=== PATIENT | female | born 1985 | race Caucasian/White ===

== ENCOUNTER 2020-12-18 09:08 | Outpatient (REF) | payer OTHER, SELFPAY ==
[2020-12-18 15:25] LABS: HCT 35.6 % (36.0-46.0); HGB 11.9 g/dL (11.2-15.7); MCH 31.3 pg (27.0-33.0); MCHC 33.4 % (32.0-36.0); MCV 93.7 fL (80-95); MPV 11.1 fL (8.0-11.0); Platelet Count 321 10^3/uL (130-400); RDW 12.1 % (11.7-14.6); RDW-SD 42.1 fL; WBC 5.92 10^3/uL (4.4-10.8)
[2020-12-18 15:44] LABS: Anion Gap 9.3 mmol/L (3-11); BUN 17 mg/dL (7-18); CO2 27.7 mmol/L (21.0-32.0); CREATININE 0.7 mg/dL (0.55-1.02); Calcium 9.5 mg/dL (8.5-10.1); Calculated LDL 63 mg/dL (<100); Chloride 104 mmol/L (98-107); Cholesterol 145 mg/dL (<200); Glucose 105 mg/dL (74-106); HDL Cholesterol 76 mg/dL (40-60); Potassium 5.2 mmol/L (3.5-5.1); Sodium 141 mmol/L (136-145); Triglyceride 34 mg/dL (<150)
== END 2020-12-18 09:09 | disposition home or self-care (01) ==
LOC: NCHCN 09:08
PROVIDERS: PCP Nurse Practitioner Family; Visit Provider Nurse Practitioner Family
DX: Z00.00 Encounter for general adult medical examination without abnormal findings (principal); Z13.220 Encounter for screening for lipoid disorders; Z13.228 Encounter for screening for other metabolic disorders
CPT/HCPCS: 80048; 80061; 85027

== ENCOUNTER 2020-12-25 08:49 | Outpatient (CLI) | payer OTHER, SELFPAY ==
--- NOTE | 2020-12-25 08:43 | DI.RAD_ITS ---
EXAM: XR KNEE LT 4V AP,LAT,CHELSEY,PAT CLINICAL HISTORY: left knee pain. TECHNIQUE: 2D digital imaging was performed. COMPARISON: No exams were available for comparison FINDINGS: There is no evidence of fracture nor obvious joint effusion. Bone density is normal. No degenerativ e changes. No significant osseous lesions. Benign bone island in the lateral femoral condyle is not ed. There is no obvious patellar displacement in this female patient. IMPRESSION: No significant radiographic findings in the left knee. DATA REPOSITORY: RADIATION DOSE DELIVERED:
== END 2020-12-25 08:50 | disposition home or self-care (01) ==
LOC: DIORS 08:50
PROVIDERS: PCP Nurse Practitioner Family; Referring Provider Nurse Practitioner Family; Visit Provider Physician Assistant
DX: M25.562 Pain in left knee (principal)
CPT/HCPCS: 73564

== ENCOUNTER 2021-01-28 15:58 | Outpatient (REF) | payer OTHER, SELFPAY ==
--- NOTE | 2021-01-28 15:00 | PAPFT_PTH ---
PATIENT: Eugenia Patricia LOC: NCN #:[id number] AGE/SX: 35/F ROOM: RE01/28/[address]: Daniela Prado : 1985 BED: DIS: 01/28/2021 SPEC #: [id number] RECD: 01/28/21 18:19 STATUS: NELSON REQ #: [id number] MANUEL: 01/28/21 15:[address]: Daniela Prado DEPT: [facility] Cytology RECD BY: Minna March Tissues: 1 - CX/ENDOCX FOR PAP SMEARS Procedures: PAP THIN PREP/[facility] Screening HPV DNA PROBE Comments: [id number]
== END 2021-01-28 15:59 | disposition home or self-care (01) ==
LOC: NCHCN 15:58
PROVIDERS: PCP Nurse Practitioner Family; Visit Provider Nurse Practitioner Family
DX: Z00.00 Encounter for general adult medical examination without abnormal findings (principal); Z12.4 Encounter for screening for malignant neoplasm of cervix; Z11.51 Encounter for screening for human papillomavirus (HPV)
CPT/HCPCS: 88142; 87624

== ENCOUNTER 2022-06-30 02:47 | Outpatient (CLI) | payer OTHER, SELFPAY ==
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
== END 2022-06-30 03:07 ==
LOC: DI 02:47
PROVIDERS: PCP Nurse Practitioner Family; Visit Provider Student in an Organized Health Care Education/Training Program
DX: M71.22 Synovial cyst of popliteal space [Baker], left knee (principal)
CPT/HCPCS: 73721

== ENCOUNTER 2023-10-20 18:10 | Outpatient (REF) | payer OTHER, SELFPAY ==
[2023-10-20 19:35] LABS: Abs Immature Grans 0.02 10^3/uL (0.0-0.06); Absolute Basophil Count 0.04 10^3/uL (0.0-0.2); Absolute Eosinophil Count 0.03 10^3/uL (0.0-0.7); Absolute Lymphocyte Count 2.54 10^3/uL (1.2-3.4); Absolute Monocyte Count 0.57 10^3/uL (0.1-0.8); Absolute Neutrophil Count 4.97 10^3/uL (1.2-6.7); Basophils % 0.5; Eosinophils % 0.4; HGB 12.5 g/dL (11.2-15.7); Immature Grans % 0.2; Lymphocytes % 31.1; MCH 31.3 pg (27.0-33.0); MCHC 33.8 % (32.0-36.0); MCV 93 fL (80-95); MPV 10.9 fL (8.0-11.0); Neutrophils % 60.8; Platelet Count 342 10^3/uL (130-400); RBC 3.99 10^6/uL (3.93-5.22); RDW-SD 41.2 fL; WBC 8.17 10^3/uL (4.4-10.8)
[2023-10-20 20:13] LABS: ALT 24 U/L (14-59); AST 18 U/L (15-37); Albumin 4.2 g/dL (3.4-5.0); Alkaline Phosphatase 58 U/L (46-116); Anion Gap 7.9 mmol/L (3-11); BUN 12 mg/dL (7-18); Bilirubin, Total 0.9 mg/dL (0.2-1.0); CO2 30.1 mmol/L (21.0-32.0); CREATININE 0.8 mg/dL (0.55-1.02); Calcium 10.1 mg/dL (8.5-10.1); Chloride 103 mmol/L (98-107); Estimated GFR 97.26 (mL/min/1.73m2); Ferritin 66 ng/mL (8-252); Glucose 100 mg/dL (74-106); Magnesium 1.8 mg/dL (1.8-2.4); Potassium 4.4 mmol/L (3.5-5.1); Sodium 141 mmol/L (136-145); TSH 1.93 uIU/mL (0.36-3.74); Total Protein 7.7 g/dL (6.4-8.2)
[2023-10-20 20:36] LABS: FREE T4 0.85 ng/dL (0.76-1.46)
[2023-10-20 20:46] LABS: Iron 105 ug/dL (50-170); Total Iron Binding Capacity 318 ug/dL (250-450); Transferrin Sat 33 % (15-50)
== END 2023-10-20 18:11 | disposition home or self-care (01) ==
LOC: NCHCN 18:10
PROVIDERS: PCP Nurse Practitioner Family; Visit Provider Nurse Practitioner Family
DX: R51.9 Headache, unspecified (principal)
CPT/HCPCS: 80053; 82728; 83540; 83550; 83735; 84439; 84443; 85025

== ENCOUNTER 2024-05-23 01:02 | Outpatient (CLI) | payer OTHER, SELFPAY ==
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
== END 2024-05-23 01:22 ==
LOC: DI 01:02
PROVIDERS: Visit Provider Student in an Organized Health Care Education/Training Program
DX: M71.22 Synovial cyst of popliteal space [Baker], left knee (principal)
CPT/HCPCS: 73721

== ENCOUNTER → 2025-07-20 13:30 | Outpatient (CLI) | payer OTHER, SELFPAY ==
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
== END ==
LOC: DI 13:31
PROVIDERS: PCP Nurse Practitioner Family; Visit Provider Nurse Practitioner Family
DX: M79.642 Pain in left hand (principal)
CPT/HCPCS: 73110